=== PATIENT | female | born 1935 | race Caucasian/White ===

== ENCOUNTER 2017-08-07 14:03 | Inpatient (IN) | payer MEDICARE, BC ==
[~2017-08-07] VITALS: Ht 165.1 cm; Wt 77.3 kg
[~2017-08-07 14:03] MED LIST: COUMADIN5 MG PO; DYAZIDE 37.5/251 CAP PO; EFFEXOR XR150 MG PO; EVISTA60 MG PO; K-TAB10 MEQ PO; LEVAQUIN500 MG PO
[2017-08-07 14:42] LABS: BASOPHILS 0.1 % (0-2); EOSINOPHILS 0.8 % (0-7); HEMATOCRIT 34.4 % (36.0-48.0); HEMOGLOBIN 10.9 g/dL (12-16); IMMATURE GRANULOCYTES 0.3 % (0-5); MCH 24.8 pg (26.0-34.0); MCHC 31.7 g/dL (31.0-37.0); MCV 78.4 fL (80.0-100.0); MEAN PLATELET VOLUME 8.5 fL (7.4-10.4); NEUTROPHILS 70.8 % (40-80); PLATELET COUNT 260 10x3/uL (130-400); RBC 4.39 10x6/uL (4.00-5.40); RDW 16.5 % (11.5-14.5); WBC 8.7 10x3/uL (4.8-10.8)
[2017-08-07 14:59] LABS: ALBUMIN 2.9 g/dL (3.4-5.0); ANION GAP 14.9 mmol/L (8-16); BILIRUBIN - TOTAL 0.43 mg/dL (0.2-1.3); CALCIUM 9.1 mg/dL (8.5-10.1); CARBON DIOXIDE 26.7 mmol/L (21.0-32.0); CREATININE - SERUM 1.2 mg/dL (0.6-1.3); POTASSIUM - SERUM 3.6 mmol/L (3.5-5.1); PROTEIN - SERUM 7.8 g/dL (6.4-8.2)
[2017-08-07 15:10] LABS: APPEARANCE CLEAR (CLEAR); BACTERIA FEW /hpf (NONE SEEN); BILIRUBIN NEGATIVE (NEGATIVE); COLOR YELLOW (YELLOW); GLUCOSE NEGATIVE (NEGATIVE); KETONE NEGATIVE (NEGATIVE); NITRITE NEGATIVE (NEGATIVE); PROTEIN NEGATIVE (NEGATIVE); RED CELLS - URINE OCC /hpf (0-5); UROBILINOGEN NORMAL (NORMAL); WHITE CELLS - URINE 0-5 /hpf (0-5)
--- NOTE | 2017-08-07 18:13 | NUR ---
RECEIVED PT IN BED AAOX4 RESP UNLABORED GENERALIZED WEAKNESS NOTED O2 SAT 96% ON ROOM AIR SALINE LOCK INTACT TO LAC SITE FREE OF REDNESS OR EDEMA PT DENIES ANY NEEDS OR DISCOMFORT NAD NOTED
[2017-08-07] MEDS ORDERED: XANAX0.25 MG PO (19:43)
[2017-08-07] MEDS ORDERED: COUMADIN5 MG PO (19:47)
[2017-08-07] MEDS ORDERED: COUMADIN2.5 MG PO (19:48)
[2017-08-07] MEDS ORDERED: ZOLOFT50 MG PO (19:50)
[2017-08-07] MEDS ORDERED: TRIAMTERENE-HCT1 TA1 PO (19:56)
[2017-08-07] MEDS ORDERED: ARICEPT10 MG PO (19:57)
[2017-08-07 21:24] VITALS: BP 131/58
[2017-08-08] VITALS (7 sets, daily range): BP systolic 117–145; BP diastolic 54–89; Ht 165.1 cm; Wt 77.3 kg
--- NOTE | 2017-08-08 00:19 | NUR ---
SLEEPING COMFORTABLY AT THIS TIME. BED IN LOW POSITION, CALL LIGHT IN REACH. ROOM AIR, 18 G IN LEFT AC WITH NS AT 50. PATIENT WILL REQUEST TO USE THE BED WARNER IF NEEDED. TELEMETRY SHOWS SR 73.
--- NOTE | 2017-08-08 02:31 | NUR ---
PATIENT IS SLEEPING PEACFULLY. ROOM AIR. 18 GAUGE IV IN L AC IS PATENT AND 50ML/HR NS IS INFUSING.
--- NOTE | 2017-08-08 05:04 | NUR ---
PT OPENED EYES WHEN DOOR OPENED. STATES HE IS OKAY AND DENIES ANY NEEDS. BED LOW AND CALL LIGHT IN REACH. AIR FORCE SENIOR OFFICER GOING IN TO CHECK VITAL SIGNS. WILL CPOC
--- NOTE | 2017-08-08 07:30 | NUR ---
ASSESSMENT COMPLETED. TELEMERTY SHOWS SR 82. LEFT ARM IV WITH NS AT 50. DENIES ANY NEEDS, AWAKE AND ALERT. FAMILY AT BEDSIDE
[2017-08-08 08:35] LABS: INR 1.94 (0.85-1.17); PROTIME 22.1 SECONDS (11.6-15.0)
--- NOTE | 2017-08-08 10:00 | NUR ---
RESTING QUIETLY RESP UNLABORED DENIES ANY NEEDS OR DISCOMFORT
--- NOTE | 2017-08-08 18:12 | NUR ---
PT LYING QUIETLY. TELEMERTY SHOWS SR. IV INFUSING INTO LEFT AC. DENIES ANY NEEDS
--- NOTE | 2017-08-08 19:30 | NUR ---
ROUNDING NOTE: PT IS LAYING IN BED W/ DTR IN LAW AT THE BEDSIDE. PT IS ON RA W/ NS RUNNING AT 50CC/HR TO LEFT AC. PT IS NSR ON THE MONITOR W/ RATE OF 80. PT HAS HAD LOW GRADE TEMP 100.1. WILL CONT TO MONITOR.
[2017-08-09] VITALS (7 sets, daily range): BP systolic 124–142; BP diastolic 50–70
[2017-08-09 04:35] LABS: BASOPHILS 0.1 % (0-2); EOSINOPHILS 0.2 % (0-7); HEMATOCRIT 31.5 % (36.0-48.0); HEMOGLOBIN 9.9 g/dL (12-16); IMMATURE GRANULOCYTES 0.5 % (0-5); LYMPHOCYTES 12.4 % (15-50); MCH 24.6 pg (26.0-34.0); MCHC 31.4 g/dL (31.0-37.0); MCV 78.4 fL (80.0-100.0); MEAN PLATELET VOLUME 9.4 fL (7.4-10.4); MONOCYTES 12.6 % (2-11); NEUTROPHILS 74.2 % (40-80); PLATELET COUNT 254 10x3/uL (130-400); RBC 4.02 10x6/uL (4.00-5.40); WBC 10.2 10x3/uL (4.8-10.8)
[2017-08-09 04:38] LABS: INR 1.92 (0.85-1.17)
[2017-08-09 04:54] LABS: ALBUMIN 2.2 g/dL (3.4-5.0); ANION GAP 11.5 mmol/L (8-16); BILIRUBIN - TOTAL 0.6 mg/dL (0.2-1.3); CALCIUM 8.5 mg/dL (8.5-10.1); CARBON DIOXIDE 29.1 mmol/L (21.0-32.0); MAGNESIUM - SERUM 1.6 mg/dL (1.8-2.4); PHOSPHOROUS 4.3 mg/dL (2.5-4.9); POTASSIUM - SERUM 3.6 mmol/L (3.5-5.1); PROTEIN - SERUM 6.7 g/dL (6.4-8.2)
--- NOTE | 2017-08-09 06:00 | NUR ---
PT REQUESTED TYLENOL X 1 FOR SHOULDER PAIN RELATED TO A FALL AT HOME. PT HAS ALREADY HAD NUMEROUS XRAYS, WHICH WERE ALL NEGATIVE. PT HAS SLEPT THROUGH THE NIGHT SINCE RECEIVING THE TYLENOL WITHOUT ANY FURTHER COMPLAINTS. WILL CONT TO MONITOR.
--- NOTE | 2017-08-09 07:20 | NUR ---
PT IN BED RESTING WITH EYES CLOSED. FAMILY AT BEDSIDE SLEEPING. NO DISTRESS NOTED. IV TO LEFT AC WITH NS @50CC/HR. TELEMENTRY INTACT RUNNING SR. SR UP X 2 C/L IN REACH WILL MONITOR.
--- NOTE | 2017-08-09 08:48 | NUR ---
RESTS IN BED WITH CALL LIGHT IN REACH. IV PATENT. VISITOR AT BS. WILL CONT. PLAN OF CARE.
--- NOTE | 2017-08-09 18:05 | NUR ---
MRI MACHINE DOWN. SERVICE HAS ORDERED PARTS. WILL ATTEMPT MRI LUMBAR SPINE IN AM WHEN MRI MACHINE HAS HAD SUFFICIENT TIME TO COOL. PAGED DR. BROWNING AND NOTIFIED PATIENT AND NURSE.
--- NOTE | 2017-08-09 19:18 | NUR ---
INIITAL ROUNDS COMPLETED. PT DENIES ANY DISCOMFORT. ASSISTED PT TO BSC WITH ASSIST X2. VOIDED 200CC OF URINE. ASSISTED BACK TO BED. WILL CONTINUE TO MONITOR. FAMILY AT BEDSIDE.
--- NOTE | 2017-08-09 20:13 | NUR ---
ADMISSION ASSESSMENT COMPLETED. IV TO LAC WITH NS AT 50CC/HR. IV PATENT. LUNGS DIMINISHED IN BASES BIALT. SR PER CM HR 91. 1+ PEDAL EDEMA NOTED. DENIES ANY DISCOMFORT. FAMILY AT BEDSIDE. SR UP X2, CALL LIGHT WITHIN REACH.
--- NOTE | 2017-08-09 21:15 | NUR ---
BEDBATH IN PROGRESS. JOE ALARM TO BE PLACED AFTER BATH. WILL CONTINUE TO MONITOR.
--- NOTE | 2017-08-09 23:45 | NUR ---
PT RESTING WITH EYES CLOSED. RESP EVEN AND REGULAR. SR UP X2, CALL LIGHT WITHIN REACH.
--- NOTE | 2017-08-10 02:12 | NUR ---
PT RESTING WITH EYES CLOSED. RESP EVEN AND REGULAR. SR UP X2, CALL LIGHT WITHIN REACH.
[2017-08-10 04:24] VITALS: BP 131/65
[2017-08-10 04:55] LABS: BASOPHILS 0.1 % (0-2); EOSINOPHILS 0.9 % (0-7); HEMATOCRIT 30.1 % (36.0-48.0); HEMOGLOBIN 9.4 g/dL (12-16); IMMATURE GRANULOCYTES 0.3 % (0-5); LYMPHOCYTES 18.3 % (15-50); MCH 24.5 pg (26.0-34.0); MCHC 31.2 g/dL (31.0-37.0); MCV 78.6 fL (80.0-100.0); MEAN PLATELET VOLUME 9.1 fL (7.4-10.4); MONOCYTES 10.8 % (2-11); NEUTROPHILS 69.6 % (40-80); PLATELET COUNT 244 10x3/uL (130-400); RBC 3.83 10x6/uL (4.00-5.40); RDW 17.1 % (11.5-14.5)
--- NOTE | 2017-08-10 05:00 | NUR ---
PT RESTING WITH EYES CLOSED. RESP EVEN AND REGULAR. SR UP X2, CALL LIGHT WITHIN REACH.
[2017-08-10 05:06] LABS: INR 2.11 (0.85-1.17); PROTIME 23.7 SECONDS (11.6-15.0)
[2017-08-10 05:07] LABS: ANION GAP 11.2 mmol/L (8-16); CALCIUM 8.8 mg/dL (8.5-10.1); CARBON DIOXIDE 28.3 mmol/L (21.0-32.0); CREATININE - SERUM 0.9 mg/dL (0.6-1.3); MAGNESIUM - SERUM 1.8 mg/dL (1.8-2.4); POTASSIUM - SERUM 3.5 mmol/L (3.5-5.1)
--- NOTE | 2017-08-10 06:14 | NUR ---
VSS THROUGHOUT NIGHT. SR PER CM. PT DENIED ANY DISCOMFORT. NEEDS MET; WILL CONTINUE TO MONITOR.
--- NOTE | 2017-08-10 07:45 | NUR ---
INTRODUCED MYSELF TO PT PRIMARY RN FOR TODAYS SHIFT. PT RESTING QUIETLY IN BED AND DENIES ANY CURRENT PAIN OR NEEDS. WILL CHECK CHART AND CPOC.
[2017-08-10 08:47] VITALS: BP 127/74
--- NOTE | 2017-08-10 10:00 | NUR ---
PT LEAVING FOR MRI.
--- NOTE | 2017-08-10 10:05 | NUR ---
MRI WOULD NOT SCAN AGAIN THIS AM. NOTIFIED DR GARCIA HE SAID TO PUT ON LIST TO BE 1ST WHEN MACHINE BACK UP.
--- NOTE | 2017-08-10 10:30 | NUR ---
PT BACK FROM MRI. BACK IN BED AND STATES "IM FEELING PRETTY GOOD" CL IN REACH, VISITORS AT BEDSIDE. WILL CPOC.
[2017-08-10 12:03] VITALS: BP 139/70
--- NOTE | 2017-08-10 13:13 | NUR ---
PT SITTING UP IN BEDSIDE CHAIR AND RESTING QUIETLY AND STATES SHE IS COMFORTABLE. RR NONLABORED ON RA. CL IN REACH, FAMILY SURROUNDING AND VISITING WILL CPOC.
[2017-08-10 16:23] VITALS: BP 137/62
[2017-08-10 19:00] VITALS: BP 126/70
--- NOTE | 2017-08-10 19:40 | NUR ---
RESUMED CARE OF PT, LYING IN BED RESPIRATIONS EVEN AND UNLABORED ON ROOM AIR. 91 SR WITH PACS ON TELEMETRY. LEFT AC INFUSING ZITHROMAX @ 150, COMPLAINS OF DISCOMFORT DROPPED RATE TO 100ML/HR. REQUESTS NIGHT MEDS, CALL LIGHT IN REACH. WILL CONTINUE TO MONITOR. SEE NURSE ASSESSMENT.
--- NOTE | 2017-08-10 22:00 | NUR ---
IV REMOVED PER PT REQUEST, DUE TO PAINFUL POSITION. DC'D WITH TIP INTACT. WILL CONTINUE TO MONITOR.
[2017-08-11 00:38] VITALS: BP 140/65
[2017-08-11 04:24] VITALS: BP 127/61
[2017-08-11 05:40] LABS: BASOPHILS 0.3 % (0-2); EOSINOPHILS 2.3 % (0-7); HEMATOCRIT 29.8 % (36.0-48.0); HEMOGLOBIN 9.3 g/dL (12-16); IMMATURE GRANULOCYTES 0.3 % (0-5); LYMPHOCYTES 17.2 % (15-50); MCH 24.7 pg (26.0-34.0); MCHC 31.2 g/dL (31.0-37.0); MCV 79.3 fL (80.0-100.0); MEAN PLATELET VOLUME 9.5 fL (7.4-10.4); MONOCYTES 7.7 % (2-11); NEUTROPHILS 72.2 % (40-80); RBC 3.76 10x6/uL (4.00-5.40); RDW 17.2 % (11.5-14.5); WBC 7.4 10x3/uL (4.8-10.8)
[2017-08-11 05:41] LABS: PLATELET COUNT 297 10x3/uL (130-400)
[2017-08-11 05:56] LABS: ANION GAP 11.5 mmol/L (8-16); CALCIUM 8.5 mg/dL (8.5-10.1); CARBON DIOXIDE 28.8 mmol/L (21.0-32.0); CREATININE - SERUM 0.9 mg/dL (0.6-1.3)
[2017-08-11 05:57] LABS: POTASSIUM - SERUM 4.3 mmol/L (3.5-5.1)
--- NOTE | 2017-08-11 06:03 | NUR ---
NO CHANGES FROM PREVIOUS ASSESSMENT, CALL LIGHT IN REACH.
[2017-08-11 06:11] LABS: INR 2.05 (0.85-1.17); PROTIME 23.2 SECONDS (11.6-15.0)
--- NOTE | 2017-08-11 06:42 | NUR ---
IV TO LEFT FOREARM X 2 STICKS.
[2017-08-11] MEDS ORDERED: OMNICEF300 MG PO (07:18)
[2017-08-11 08:00] VITALS: BP 157/67
--- NOTE | 2017-08-11 10:00 | NUR ---
RESTING QUIETLY NAD NOTED
--- NOTE | 2017-08-11 10:10 | NUR ---
Patient Name: IRENE REYEZ Admission Status: ER Accout number: [id number] Admission Date: 08-07-2017 : 1935 Admission Diagnosis: Attending: Bg Powell Current LOS: 4 Anticipated DC Date: 08-11-2017 Planned Disposition: Home Primary Insurance: MEDICARE A & B Discharge Planning Comments: * Is the patient Alert and Oriented? Yes 0 * How many steps to enter\exit or inside your home? 4 0 * PCP DR. SUERO [place] 0 * Pharmacy [facility] [place] 0 * Preadmission Environment Home Alone 0 * ADLs Independent 0 * Equipment Cane Rolling Walker Walker 0 * Other Equipment NO MEDICAL EQUIPMENT PROVIDER PREFERENCE 0 * List name and contact numbers for known caregivers / representatives who currently or will assist patient after discharge: LIZBET HARRIS, DTR, 0 * Community resources currently utilized None 0 * Please name any agencies selected above. NONE 0 * Additional services required to return to the preadmission environment? No 0 * Can the patient safely return to the preadmission environment? Yes 0 * Has this patient been hospitalized within the prior 30 days at any hospital? No 0 CM RECEIVED DISCHARGE ORDER, MET WITH PT AND DAUGHTER, RUDY TRACEY, IN ROOM TO DISCUSS DISCHARGE PLANNING AND NEEDS. PT REPORTS LIVING AT HOME INDEPENDENTLY AND ALONE. PT HAS SEVERAL CANES AND A ROLLING WALKER WELL STANDARD WALKER WITH NO MEDICAL EQUIPMENT PROVIDER PREFERENCE. PT HAS NO OUTSIDE SERVICES ASSISTING IN THE HOME. CM DISCUSSED AVAILABILITY OF HOME HEALTH, REHAB SERVICES AND MEDICAL EQUIPMENT. PT DENIES DISCHARGE NEEDS, REPORTS HER DAUGHTER RUDY IS A REGISTERED NURSE AND PT IS GOING TO RUDY'S HOME IN [place] AT DISCHARGE, DAUGHTER IS HERE TO PICK PT UP FOR DISCHARGE HOME TODAY. IMPORTANT MESSAGE FROM MEDICARE PROVIDED AND EXPLAINED. PT'S DAUGHTER RE[facility] [place]. PT WILL HAVE NO STAIRS TO CLIMB AT OR IN DAUGHTERS HOME. TRANSIT SPECIALIST NOTIFIED. Building Maintenance Technician: Onofre Islas
--- NOTE | 2017-08-11 10:12 | NUR ---
ASSESSMENT COMPLETED.TELEMERTY SHOWS SR .ON NORMA AIR. UP WITH ASSIST. LEFT FA SL. SR UP WITH CALL LIGHT IN REACH. WILL MONITOR
--- NOTE | 2017-08-11 11:10 | NUR ---
PT DISCHARGED. TO PRIVATE CAR PER WHEELCHAIR
[2017-08-11 12:00] VITALS: BP 154/77
--- NOTE | 2017-08-11 14:22 | NUR ---
SPOKE WITH MACIEJ AT DR [facility], EXPLAINED THAT THE MRI MACHINE WAS DOWN AND THEY SENT AN EMAIL SAYING IT MAY BE DOWN ALL WEEK. HE STATED (THROUGH MACIEJ) TO GO AHEAD AND LET THE PATIENT GO HOME.
== END 2017-08-11 10:55 | disposition home or self-care (01) | DRG 551 ==
LOC: D.ER 14:03 → D.M2 16:39
PROVIDERS: Emergency Medicine; Family Medicine; ADMIT Family Medicine
DX: M48.061 Spinal stenosis, lumbar region without neurogenic claudication (principal); J18.9 Pneumonia, unspecified organism; I82.501 Chronic embolism and thrombosis of unspecified deep veins of right lower extremity; Z79.01 Long term (current) use of anticoagulants; I10 Essential (primary) hypertension; F32.9 Major depressive disorder, single episode, unspecified; Z86.73 Personal history of transient ischemic attack (TIA), and cerebral infarction without residual deficits; Z87.891 Personal history of nicotine dependence